=== PATIENT | female | born 1935 | race Caucasian/White ===

== ENCOUNTER → 2017-10-09 | Outpatient (CLI) | payer OTHER ==
[~2017-10-09] MED LIST: (None)15 G1 TOP; ATEN25 PO; AZIT500 PO; Acetaminophen325 M1 PO; CLOB.05TO; CLON1; COUGH PO; DIPH50 PO; DULO60 PO; FAMO20 PO; FURO20 PO; GABA300 PO; GAVILAX17 GM PO; HYDACE5325 PO; HYDR1TAB94 PO; K-Dur10 MEQ PO; LOPE2C PO; LOSA50 PO; LOVA40 PO; MAGOXI400; MELATONIN10 M2 PO; METO5 PO; NEUPRO1 EAC1 TD; Norco 5-325 Ta1 EACH PO; PRED20 PO; PROAIR RESPICL90 MCG INH; ROPI2 PO; Senna8.6 MG PO; Systane 0.3-0.415 ML BOTHEYES; Systane 0.3-0.415 ML OP; TEMA15 PO; TEMA30 PO; TIOT18 INH; TRAZ50 PO; VITAMIN D-32000 UNI1 PO; Zofran Odt4 MG SL
== END | disposition home or self-care (01) ==
LOC: LAB 14:54
DX: R35.0 Frequency of micturition (principal)
CPT/HCPCS: 87086

== ENCOUNTER 2017-11-29 13:24 | Inpatient (IN) | payer OTHER ==
[~2017-11-29] VITALS: Ht 157.5 cm; Wt 65.3 kg
[~2017-11-29 13:24] MED LIST changes: -AZIT500 PO; -CLOB.05TO; -MAGOXI400; -PRED20 PO; -PROAIR RESPICL90 MCG INH; -Senna8.6 MG PO; -Systane 0.3-0.415 ML OP; -TIOT18 INH; -TRAZ50 PO
[2017-11-29] MEDS ORDERED: TRAZ50 PO (13:47)
[2017-11-29] MEDS ORDERED: Systane 0.3-0.415 ML OP (13:48)
[2017-11-29] MEDS ORDERED: MAGOXI400 (13:48)
[2017-11-29] MEDS ORDERED: Senna8.6 MG PO (13:48)
[2017-11-29] MEDS ORDERED: CLOB.05TO (13:49)
[2017-11-29 13:55] LABS: BASOPHILS ABSOLUTE AUTO 0.02 K/mm3 (0.00-0.23); BASOPHILS PERCENT AUTO 0 % (0-2); EOSINOPHILS ABSOLUTE AUTO 0.04 K/mm3 (0.00-0.68); EOSINOPHILS PERCENT AUTO 1 % (0-6); Hemoglobin 13.4 g/dL (11.5-16.0); IMMATURE GRAN ABSOLUTE AUTO 0.01 K/mm3 (0.00-0.10); IMMATURE GRAN PERCENT AUTO 0 % (0-1); LYMPHOCYTES PERCENT AUTO 10 % (21-46); MONOCYTES ABSOLUTE AUTO 0.78 K/mm3 (0.16-1.47); MONOCYTES PERCENT AUTO 11 % (4-13); Mean Corpuscular HGB 32.1 pg (26.0-34.0); Mean Corpuscular HGB Conc 33.5 g/dL (31.5-36.5); Mean Corpuscular Volume 96 fL (80-100); Mean Platelet Volume 8.9 fL (9.1-12.4); NEUTROPHILS ABSOLUTE AUTO 5.64 K/mm3 (1.96-9.15); NEUTROPHILS PERCENT AUTO 79 % (41-73); Platelet Count 183 K/mm3 (150-400); RDW Coefficient Variation 12.2 % (11.7-14.2); RDW Standard Deviation 42.9 fL (35.1-46.3); Red Blood Cell Count 4.18 M/mm3 (3.80-5.20); White Blood Cell Count 7.19 K/mm3 (4.00-11.30)
[2017-11-29 14:07] LABS: Alanine Aminotransfer (ALT/SGP 32 U/L (12-78); Albumin, Blood 3.3 g/dL (3.4-5.0); Albumin/Globulin Ratio 0.8 (0.8-1.8); Alk Phos 90 U/L (50-136); Anion Gap 7 mmol/L (6-16); Aspartate Aminotrans (AST/SGOT 67 U/L (12-37); Bilirubin, Total 0.6 mg/dL (0.1-1.0); Blood Urea Nitrogen 16 mg/dL (8-24); Bun/Creatinine Ratio 17.4 (12.0-20.0); CO2, Blood 29 mmol/L (21-32); Calcium, Blood 9.1 mg/dL (8.5-10.1); Chloride, Blood 104 mmol/L (98-108); Creatinine, Blood 0.92 mg/dL (0.40-1.00); Ethanol (Alcohol), Blood, Med <3 mg/dL; Globulin, Blood 4.1 g/dL (2.2-4.0); Glomerular Filtration Rate >60 (60-); Glucose, Blood 73 mg/dL (70-99); Potassium, Blood 4.2 mmol/L (3.5-5.5); Sodium, Blood 140 mmol/L (136-145); Total Protein, Blood 7.4 g/dL (6.4-8.2)
[2017-11-29 17:34] LABS: Source, Urine Catheter
[2017-11-29 17:55] LABS: Appearance, Urine Clear (Clear); Bilirubin, Urine Neg (Neg); Blood, Urine Neg (Neg); Color, Urine Yellow (P-Yellow); Glucose Qualitative, Urine Neg (Neg); Ketones, Urine Neg (Neg); Leukocyte Esterase, Urine Neg (Neg); Nitrite, Urine Neg (Neg); Protein, Urine Neg (Neg); Urobilinogen, Urine NORM (Normal)
[2017-11-29 22:48] LABS: Influenza A Negative (NEGATIVE); Influenza B Negative (NEGATIVE)
[2017-11-30 05:14] LABS: BASOPHILS ABSOLUTE AUTO 0.01 K/mm3 (0.00-0.23); BASOPHILS PERCENT AUTO 0 % (0-2); EOSINOPHILS PERCENT AUTO 0 % (0-6); Hematocrit 39.2 % (33.0-51.0); Hemoglobin 13.2 g/dL (11.5-16.0); IMMATURE GRAN ABSOLUTE AUTO 0.02 K/mm3 (0.00-0.10); IMMATURE GRAN PERCENT AUTO 0 % (0-1); LYMPHOCYTES ABSOLUTE AUTO 0.51 K/mm3 (0.84-5.20); LYMPHOCYTES PERCENT AUTO 8 % (21-46); MONOCYTES ABSOLUTE AUTO 0.12 K/mm3 (0.16-1.47); MONOCYTES PERCENT AUTO 2 % (4-13); Mean Corpuscular HGB Conc 33.7 g/dL (31.5-36.5); Mean Corpuscular Volume 95 fL (80-100); Mean Platelet Volume 9.2 fL (9.1-12.4); NEUTROPHILS ABSOLUTE AUTO 6.05 K/mm3 (1.96-9.15); NEUTROPHILS PERCENT AUTO 90 % (41-73); Platelet Count 189 K/mm3 (150-400); RDW Coefficient Variation 12.1 % (11.7-14.2); RDW Standard Deviation 42.4 fL (35.1-46.3); Red Blood Cell Count 4.12 M/mm3 (3.80-5.20); White Blood Cell Count 6.71 K/mm3 (4.00-11.30)
[2017-11-30 05:41] LABS: Albumin, Blood 3.1 g/dL (3.4-5.0); Anion Gap 9 mmol/L (6-16); Blood Urea Nitrogen 22 mg/dL (8-24); Bun/Creatinine Ratio 24.6 (12.0-20.0); CO2, Blood 26 mmol/L (21-32); Calcium, Blood 8.9 mg/dL (8.5-10.1); Chloride, Blood 107 mmol/L (98-108); Creatinine, Blood 0.89 mg/dL (0.40-1.00); Glomerular Filtration Rate >60 (60-); Glucose, Blood 176 mg/dL (70-99); Phosphorus, Blood 2.2 mg/dL (2.5-4.9); Potassium, Blood 4.2 mmol/L (3.5-5.5); Sodium, Blood 142 mmol/L (136-145)
[2017-11-30 09:35] LABS: Creatine Kinase MB 6.8 ng/mL (0.0-3.6); Troponin I <0.015 ng/mL (0.000-0.040)
[2017-11-30 09:46] LABS: CPK Creatine Kinase 1304 U/L (26-193); Creatine Kinase MB Index 0.5 (0.0-4.0)
[2017-11-30 16:09] LABS: PCO2 Arterial 37.1 mmHg (35-45); pH Blood Arterial 7.46 (7.35-7.45)
[2017-12-01 05:24] LABS: Anion Gap 10 mmol/L (6-16); Blood Urea Nitrogen 19 mg/dL (8-24); Bun/Creatinine Ratio 25.2 (12.0-20.0); CO2, Blood 24 mmol/L (21-32); Calcium, Blood 9.2 mg/dL (8.5-10.1); Chloride, Blood 106 mmol/L (98-108); Creatinine, Blood 0.75 mg/dL (0.40-1.00); Glomerular Filtration Rate >60 (60-); Glucose, Blood 153 mg/dL (70-99); Potassium, Blood 4.2 mmol/L (3.5-5.5); Sodium, Blood 140 mmol/L (136-145)
[2017-12-01 05:28] LABS: CPK Creatine Kinase 1174 U/L (26-193)
[2017-12-02 05:27] LABS: Anion Gap 10 mmol/L (6-16); Blood Urea Nitrogen 24 mg/dL (8-24); Bun/Creatinine Ratio 31.7 (12.0-20.0); CO2, Blood 24 mmol/L (21-32); CPK Creatine Kinase 816 U/L (26-193); Calcium, Blood 8.9 mg/dL (8.5-10.1); Chloride, Blood 106 mmol/L (98-108); Creatinine, Blood 0.76 mg/dL (0.40-1.00); Glomerular Filtration Rate >60 (60-); Glucose, Blood 127 mg/dL (70-99); Potassium, Blood 3.5 mmol/L (3.5-5.5); Sodium, Blood 140 mmol/L (136-145)
[2017-12-03 05:39] LABS: Anion Gap 10 mmol/L (6-16); Blood Urea Nitrogen 17 mg/dL (8-24); Bun/Creatinine Ratio 26.3 (12.0-20.0); CO2, Blood 23 mmol/L (21-32); CPK Creatine Kinase 379 U/L (26-193); Calcium, Blood 8.6 mg/dL (8.5-10.1); Chloride, Blood 106 mmol/L (98-108); Creatinine, Blood 0.65 mg/dL (0.40-1.00); Glomerular Filtration Rate >60 (60-); Glucose, Blood 105 mg/dL (70-99); Potassium, Blood 3.3 mmol/L (3.5-5.5); Sodium, Blood 139 mmol/L (136-145)
[2017-12-03] MEDS ORDERED: PRED20 PO (12:06)
[2017-12-03] MEDS ORDERED: TIOT18 INH (12:06)
[2017-12-03] MEDS ORDERED: PROAIR RESPICL90 MCG INH (12:07)
[2017-12-03] MEDS ORDERED: AZIT500 PO (12:07)
== END 2017-12-03 14:30 | disposition home or self-care (01) | DRG 190 ==
LOC: ER 13:24 → MEDS 18:36 → ENPENDDIS 12-03 11:08 → MEDS 12-03 14:30
PROVIDERS: Emergency Medicine; Internal Medicine
DX: J44.1 Chronic obstructive pulmonary disease with (acute) exacerbation (principal); J96.01 Acute respiratory failure with hypoxia; G93.41 Metabolic encephalopathy; M62.82 Rhabdomyolysis; R00.1 Bradycardia, unspecified; R55 Syncope and collapse; K59.00 Constipation, unspecified; E78.5 Hyperlipidemia, unspecified; Z66 Do not resuscitate; G25.81 Restless legs syndrome; K59.09 Other constipation; E83.39 Other disorders of phosphorus metabolism
CPT/HCPCS: 36415; 36600; 51701; 70450; 71046; 72125; 80048; 80053; 80069; 81003; 82550; 82553; 82803; 83880; 84443; 84484; 85025; 85379; 87040; 87804; 93005; 93010; 93306; 93880; 94640; 94760; 96365; 96366; 96375; 97116; 97161; 97166; 97535; 99285; G0480; G8978; G8979; G8987; G8988; J0360; J0456; J2930; J7030; J7050; J7060

== ENCOUNTER → 2018-01-19 | Outpatient (CLI) | payer OTHER ==
[~2018-01-19] MED LIST changes: +AZIT500 PO; +CLOB.05TO; +MAGOXI400; +PRED20 PO; +PROAIR RESPICL90 MCG INH; +Senna8.6 MG PO; +Systane 0.3-0.415 ML OP; +TIOT18 INH; +TRAZ50 PO
[2018-01-19 15:04] LABS: Candida species (DNA Probe) Negative (NEGATIVE); G. vaginalis (DNA Probe) Negative (NEGATIVE); T. vaginalis (DNA Probe) Negative (NEGATIVE)
== END | disposition home or self-care (01) ==
LOC: LAB EV 10:57 → LAB SHORT 10:57
PROVIDERS: Physician Assistant
DX: N76.0 Acute vaginitis (principal)
CPT/HCPCS: 87480; 87510; 87660

== ENCOUNTER 2019-04-15 09:35 | Emergency (ER) | payer OTHER ==
[~2019-04-15] VITALS: Ht 157.5 cm; Wt 61.7 kg
[2019-04-15] MEDS ORDERED: DULO60 PO (10:12)
[2019-04-15] MEDS ORDERED: OXYB5 PO (10:12)
[2019-04-15] MEDS ORDERED: TRAZ50 PO (10:16)
[2019-04-15 10:48] LABS: BASOPHILS ABSOLUTE AUTO 0.05 K/mm3 (0.00-0.23); BASOPHILS PERCENT AUTO 1 % (0-2); EOSINOPHILS ABSOLUTE AUTO 0.18 K/mm3 (0.00-0.68); EOSINOPHILS PERCENT AUTO 3 % (0-6); Hematocrit 41.7 % (33.0-51.0); Hemoglobin 13.8 g/dL (11.5-16.0); IMMATURE GRAN ABSOLUTE AUTO 0.01 K/mm3 (0.00-0.10); IMMATURE GRAN PERCENT AUTO 0 % (0-1); LYMPHOCYTES ABSOLUTE AUTO 1.11 K/mm3 (0.84-5.20); LYMPHOCYTES PERCENT AUTO 19 % (21-46); MONOCYTES ABSOLUTE AUTO 0.56 K/mm3 (0.16-1.47); MONOCYTES PERCENT AUTO 9 % (4-13); Mean Corpuscular HGB 32.8 pg (26.0-34.0); Mean Corpuscular HGB Conc 33.1 g/dL (31.5-36.5); Mean Corpuscular Volume 99 fL (80-100); NEUTROPHILS ABSOLUTE AUTO 4.09 K/mm3 (1.96-9.15); NEUTROPHILS PERCENT AUTO 68 % (41-73); Platelet Count 172 K/mm3 (150-400); RDW Coefficient Variation 12.4 % (11.7-14.2); RDW Standard Deviation 45.1 fL (35.1-46.3); Red Blood Cell Count 4.21 M/mm3 (3.80-5.20)
[2019-04-15 11:07] LABS: Alanine Aminotransfer (ALT/SGP 20 U/L (12-78); Albumin, Blood 3.5 g/dL (3.4-5.0); Albumin/Globulin Ratio 0.9 (0.8-1.8); Alk Phos 74 U/L (50-136); Anion Gap 4 mmol/L (6-16); Aspartate Aminotrans (AST/SGOT 18 U/L (12-37); Bilirubin, Total 0.7 mg/dL (0.1-1.0); Blood Urea Nitrogen 18 mg/dL (8-24); Bun/Creatinine Ratio 24.8 (12.0-20.0); CO2, Blood 32 mmol/L (21-32); Calcium, Blood 9.7 mg/dL (8.5-10.1); Chloride, Blood 103 mmol/L (98-108); Creatinine, Blood 0.73 mg/dL (0.40-1.00); Globulin, Blood 3.8 g/dL (2.2-4.0); Glomerular Filtration Rate >60 (60-); Glucose, Blood 102 mg/dL (70-99); Sodium, Blood 139 mmol/L (136-145); Total Protein, Blood 7.3 g/dL (6.4-8.2)
[2019-04-15] MEDS ORDERED: Keflex500 MG PO (11:11)
== END 2019-04-15 11:23 | disposition home or self-care (01) ==
LOC: ER 09:35
PROVIDERS: Internal Medicine
DX: L03.116 Cellulitis of left lower limb (principal); I10 Essential (primary) hypertension; Z87.891 Personal history of nicotine dependence; Z88.5 Allergy status to narcotic agent; Z88.1 Allergy status to other antibiotic agents; Z79.899 Other long term (current) drug therapy
CPT/HCPCS: 36415; 80053; 85025; 93971; 99284-25

== ENCOUNTER → 2019-12-30 | Outpatient (CLI) | payer OTHER ==
[~2019-12-30] MED LIST changes: +Keflex500 MG PO; +OXYB5 PO
[2019-12-30 20:09] LABS: BASOPHILS ABSOLUTE AUTO 0.04 K/mm3 (0.00-0.23); BASOPHILS PERCENT AUTO 1 % (0-2); EOSINOPHILS ABSOLUTE AUTO 0.14 K/mm3 (0.00-0.68); EOSINOPHILS PERCENT AUTO 2 % (0-6); Hematocrit 44.6 % (33.0-51.0); Hemoglobin 14.2 g/dL (11.5-16.0); IMMATURE GRAN ABSOLUTE AUTO 0.01 K/mm3 (0.00-0.10); IMMATURE GRAN PERCENT AUTO 0 % (0-1); LYMPHOCYTES ABSOLUTE AUTO 1.49 K/mm3 (0.84-5.20); LYMPHOCYTES PERCENT AUTO 21 % (21-46); MONOCYTES PERCENT AUTO 8 % (4-13); Mean Corpuscular HGB 31.8 pg (26.0-34.0); Mean Corpuscular HGB Conc 31.8 g/dL (31.5-36.5); Mean Corpuscular Volume 100 fL (80-100); Mean Platelet Volume 9.5 fL (9.1-12.4); NEUTROPHILS ABSOLUTE AUTO 4.93 K/mm3 (1.96-9.15); NEUTROPHILS PERCENT AUTO 68 % (41-73); Platelet Count 213 K/mm3 (150-400); RDW Coefficient Variation 12.5 % (11.7-14.2); RDW Standard Deviation 46.1 fL (35.1-46.3); Red Blood Cell Count 4.46 M/mm3 (3.80-5.20); White Blood Cell Count 7.21 K/mm3 (4.00-11.30)
[2019-12-30 20:27] LABS: Bun/Creatinine Ratio 20.7 (12.0-20.0); Calcium, Blood 9.6 mg/dL (8.5-10.1); Creatinine, Blood 0.97 mg/dL (0.40-1.00); Potassium, Blood 4.1 mmol/L (3.5-5.5)
== END | disposition home or self-care (01) ==
LOC: LAB SHORT 19:44 → LAB 19:44
PROVIDERS: Physician Assistant
DX: E53.8 Deficiency of other specified B group vitamins (principal); R60.9 Edema, unspecified
CPT/HCPCS: 80048; 82607; 82746; 85025

== ENCOUNTER 2020-08-14 10:56 | Emergency (ER) | payer OTHER ==
[~2020-08-14] VITALS: Ht 157.5 cm; Wt 63.5 kg
[2020-08-14] MEDS ORDERED: MONT10T PO (11:56)
[2020-08-14] MEDS ORDERED: DULO60 PO (11:56)
[2020-08-14] MEDS ORDERED: LOVA40 PO (11:56)
[2020-08-14] MEDS ORDERED: ATEN50 PO (11:56)
[2020-08-14] MEDS ORDERED: [UNRECOGNIZED DRUG - REMARK] PO (11:57)
[2020-08-14] MEDS ORDERED: GABA300 PO ×2 (11:58)
[2020-08-14] MEDS ORDERED: OXYB5 PO (11:58)
[2020-08-14] MEDS ORDERED: LISI20 PO (11:59)
[2020-08-14] MEDS ORDERED: LORA10ER PO (11:59)
[2020-08-14] MEDS ORDERED: TRAZ50 PO (11:59)
[2020-08-14] MEDS ORDERED: MELATONIN 5 MG1 EACH PO (11:59)
[2020-08-14] MEDS ORDERED: CLOB.05TO (12:00)
[2020-08-14] MEDS ORDERED: GENTIAN VIOLET TP (12:00)
[2020-08-14] MEDS ORDERED: ACET325 PO (12:00)
[2020-08-14] MEDS ORDERED: LOPERAMIDE2 M3 PO (12:01)
[2020-08-14] MEDS ORDERED: PROAIR DIGIHAL90 MCG (12:01)
[2020-08-14] MEDS ORDERED: SENNA LAXATIVE8.6 MG PO (12:02)
== END 2020-08-14 13:00 | disposition home or self-care (01) ==
LOC: ER 10:56
DX: S01.01XA Laceration without foreign body of scalp, initial encounter (principal); I10 Essential (primary) hypertension; E78.5 Hyperlipidemia, unspecified; Z88.1 Allergy status to other antibiotic agents; Z88.5 Allergy status to narcotic agent; Z79.899 Other long term (current) drug therapy; Z87.891 Personal history of nicotine dependence; W18.30XA Fall on same level, unspecified, initial encounter; Y93.01 Activity, walking, marching and hiking
CPT/HCPCS: 12002; 70450; 72125; 99283-25

== ENCOUNTER 2020-10-14 19:55 | Emergency (ER) | payer OTHER ==
[~2020-10-14] VITALS: Ht 162.6 cm; Wt 61.2 kg
[~2020-10-14 19:55] MED LIST changes: +ACET325 PO; +ATEN50 PO; +GENTIAN VIOLET TP; +LISI20 PO; +LOPERAMIDE2 M3 PO; +LORA10ER PO; +MELATONIN 5 MG1 EACH PO; +MONT10T PO; +PROAIR DIGIHAL90 MCG; +SENNA LAXATIVE8.6 MG PO; +[UNRECOGNIZED DRUG - REMARK] PO
[2020-10-14 20:22] LABS: Hematocrit 43.5 % (33.0-51.0); Hemoglobin 14.6 g/dL (11.5-16.0); Mean Corpuscular HGB 32.4 pg (26.0-34.0); Mean Corpuscular HGB Conc 33.6 g/dL (31.5-36.5); Mean Corpuscular Volume 97 fL (80-100); Platelet Count 228 K/mm3 (150-400); RDW Standard Deviation 46.6 fL (35.1-46.3); White Blood Cell Count 16.39 K/mm3 (4.00-11.30)
[2020-10-14 20:41] LABS: BAND PERCENT MAN 14 % (0-8); BASOPHILS ABSOLUTE MAN 0.16 K/mm3 (0.00-0.23); BASOPHILS PERCENT MAN 1 % (0-2); EOSINOPHILS PERCENT MAN 0 % (0-6); LYMPHOCYTES ABSOLUTE MAN 0.81 K/mm3 (0.84-5.20); LYMPHOCYTES PERCENT MAN 5 % (21-46); MONOCYTES ABSOLUTE MAN 1.14 K/mm3 (0.16-1.47); MONOCYTES PERCENT MAN 7 % (4-13); NEUTROPHILS ABSOLUTE MAN 14.25 K/mm3 (1.96-9.15); SEG NEUTROPHILS PERCENT MAN 73 % (41-73); TOTAL CELLS COUNTED 100
[2020-10-14 20:43] LABS: Alanine Aminotransfer (ALT/SGP 69 U/L (12-78); Albumin/Globulin Ratio 0.8 (0.8-1.8); Alk Phos 76 U/L (50-136); Anion Gap 6 mmol/L (6-16); Aspartate Aminotrans (AST/SGOT 60 U/L (12-37); Bilirubin, Total 1.4 mg/dL (0.1-1.0); Blood Urea Nitrogen 46 mg/dL (8-24); Bun/Creatinine Ratio 30.3 (12.0-20.0); CO2, Blood 24 mmol/L (21-32); Calcium, Blood 9.1 mg/dL (8.5-10.1); Chloride, Blood 111 mmol/L (98-108); Creatinine, Blood 1.52 mg/dL (0.40-1.00); Globulin, Blood 3.7 g/dL (2.2-4.0); Glomerular Filtration Rate 35 (60-); Glucose, Blood 153 mg/dL (70-99); Potassium, Blood 4.4 mmol/L (3.5-5.5); Sodium, Blood 141 mmol/L (136-145); Total Protein, Blood 6.7 g/dL (6.4-8.2); Troponin I <0.015 ng/mL (0.000-0.040)
[2020-10-14] MEDS ORDERED: Flagyl500 MG PO (23:27)
[2020-10-14] MEDS ORDERED: Cipro500 MG PO (23:27)
[2020-10-14] MEDS ORDERED: Bactrim Ds Tab1 EACH PO (23:30)
== END 2020-10-15 00:20 | disposition home or self-care (01) ==
LOC: ER 19:55
PROVIDERS: Emergency Medicine
DX: S00.11XA Contusion of right eyelid and periocular area, initial encounter (principal); E78.5 Hyperlipidemia, unspecified; I10 Essential (primary) hypertension; Z79.899 Other long term (current) drug therapy; Z88.1 Allergy status to other antibiotic agents; Z88.5 Allergy status to narcotic agent; Z87.891 Personal history of nicotine dependence; W01.190A Fall on same level from slipping, tripping and stumbling with subsequent striking against furniture, initial encounter
CPT/HCPCS: 36415; 70450; 74177; 80053; 84484; 85025; 93005; 93010; 99284-25; A9270; J7030; Q9967